=== PATIENT | male | born 1950 | race Caucasian/White ===

== ENCOUNTER 2017-04-14 15:12 | Outpatient (CLI) | payer BC ==
--- NOTE | 2017-04-14 20:10 | MRI ---
CERVICAL MRI WITHOUT CONTRAST: Date: 04-14-17 Comparison: None. History: Cervical radiculopathy, neck pain with bilateral shoulder pain for two years. Technique: Multiplanar, multisequence MR imaging of the cervical spine is provided without contrast. FINDINGS: The sagittal STIR imaging demonstrates no focal area of osseous marrow edema. There is mild degenerative change at the atlantoaxial interspace. There is no anterolisthesis or ret rolisthesis seen within the cervical spine. No focal area of prevertebral soft tissue abnormality no chucky. C2-3: No central canal or neural foraminal stenosis. C3-4: Mild left sided facet hypertrophy with no significant central canal or neural foraminal stenos is. Minimal disc bulge present. C4-5: Mild left facet hypertrophy. No significant central canal or neural foraminal stenosis. Minima l disc bulge present. C5-6: There is disc space narrowing and disc desiccation with mild disc bulge. There is associated u ncal vertebral osteophyte formation. There is partial effacement of the ventral thecal sac with mild disc bulge abutting the ventral aspect of the cord with a mild degree of central canal stenosis. Se condary to disc bulge and mild osteophyte formation, there is mild bilateral neural foraminal stenos is, left greater than right. C6-7: Mild facet hypertrophy bilaterally. No significant central canal or neural foraminal stenosis. C7-T1: No significant central canal or neural foraminal stenosis. No focal area of signal abnormality is identified within the cervical cord. IMPRESSION: Degenerative disc disease at C5-6 as detailed above. POS: [facility]
--- NOTE | 2017-04-15 08:42 | MRI ---
MRI OF THE LEFT SHOULDER: Date: 04-14-17 Provided Clinical History: Left shoulder pain. FINDINGS: The components of the rotor cuff appear intact. The long head biceps tendon appears intact and agustin lly located. The glenoid labrum and glenoid humeral articular cartilage are suboptimally evaluated w ithout joint distention. There is somewhat complex signal present in the region of the superior labr um which could reflect SLAP tear. Articular cartilage appears grossly preserved. The amount of fluid within the glenohumeral joint appears physiologic. There is slightly greater kaleb n physiologic subacromial subdeltoid bursal fluid present. Acromioclavicular joint osteoarthrosis is noted which produces mild mass effect upon the adjacent supraspinatus. No focal concerning regional marrow or muscular signal abnormality is apparent. IMPRESSION: 1. Acromioclavicular joint osteoarthrosis with mass effect upon the subjacent supraspinatus. Greater than physiologic subacromial subdeltoid bursal fluid. Please correlate with concern for subacromial impingement. 2. Possible SLAP tear. POS: [facility]
--- NOTE | 2017-04-15 09:12 | MRI ---
MRI OF THE RIGHT SHOULDER: Date: 04-15-17 Provided Clinical History: Right shoulder pain. FINDINGS: There is a small high grade partial thickness articular surface tear involving the distal supraspina tus tendon at the sub plate anteriorly. The components of the rotator cuff appear otherwise intact. The long head biceps tendon appears intact and is normally located. There is a 1.5 cm septated T2 hyperintense structure immediately inferior and slightly medial to the inferior aspect of the glenoid compatible with a paralabral cyst and implying an associated labral tear. The glenoid labrum and glenohumeral articular cartilage are suboptimally evaluated without yasmin nt distention but appear otherwise normal. Acromioclavicular joint osteoarthrosis is noted with mild mass effect upon this adjacent supraspinat us. The amounts of fluid within the glenohumeral joint and subacromial subdeltoid bursa are physiolo gic. No focal concerning regional marrow or muscular signal abnormality is apparent. IMPRESSION: 1. Small high grade partial thickness articular surface tear involving the distal supraspinatus tend on. 2. Paralabral cyst formation at the inferior aspect of the glenoid, implying an associated labral te ar. 3. Mild acromioclavicular joint osteoarthrosis. POS: OFF
== END 2017-04-14 15:13 | disposition home or self-care (01) ==
LOC: MRI 15:12
PROVIDERS: ATTEND Orthopaedic Surgery
DX: M25.511 Pain in right shoulder (principal); M25.512 Pain in left shoulder; M50.122 Cervical disc disorder at C5-C6 level with radiculopathy; M75.101 Unspecified rotator cuff tear or rupture of right shoulder, not specified as traumatic
CPT/HCPCS: 72141

== ENCOUNTER 2017-11-17 07:02 | Day surgery (SDC) | payer OTHER ==
[2017-11-14 10:15] VITALS: BMI 27.7
[~2017-11-17 07:02] MED LIST: Prevnar 13-Val Conj/PF 0.5 ML SYRINGE IM ONE
[2017-11-17 08:01] VITALS: BP 117/77; TEMP 98
[2017-11-17] MEDS ORDERED: Iopamidol-M 300 61% 15 ML VIAL ONE (09:56)
--- NOTE | 2017-11-17 10:27 | CT ---
CERVICAL MYELOGRAM AND POST MYELOGRAPHIC CT: DATE: 11/17/17. HISTORY: A 67-year-old male with a history of neck pain. Dose is 1.9 minutes of fluoroscopy and AK of 0.8 mGy. TECHNIQUE: Informed consent was obtained from the patient. The L1-2 interlaminar space was localized using fluo roscopy. The overlying skin was prepped and draped in the usual sterile manner. A 1% Lidocaine solu tion was used to anesthetize the overlying soft tissues. A 22-gauge spinal needle was placed into th e subarachnoid space. A total of 10 mL of Isovue-M 300 was injected into the subarachnoid space. Th is is followed by spot images and post myelographic CT images of the cervical spine. RADIOGRAPHIC FINDINGS: C1-2, C2-3, C3-4, C4-5: Unremarkable. C5-6: There is disk space height loss. There is a broad-based disk-osteophyte complex centrally com pressing the thecal sac resulting in mild but not significant degree of central stenosis. The neural foramen are patent. C6-7 and C7-T1: Unremarkable. IMPRESSION: Disk space height loss with disk desiccation at C5-6 compatible with changes of spondylosis. POS: [facility]
== END 2017-11-17 09:50 | disposition home or self-care (01) ==
LOC: RAD 07:02
PROVIDERS: ATTEND Neurological Surgery
DX: M50.10 Cervical disc disorder with radiculopathy, unspecified cervical region (principal); F17.210 Nicotine dependence, cigarettes, uncomplicated; Z88.0 Allergy status to penicillin; Z88.5 Allergy status to narcotic agent
CPT/HCPCS: 62302; 72126

== ENCOUNTER 2019-03-05 10:44 | Outpatient (CLI) | payer OTHER ==
--- NOTE | 2019-03-05 12:08 | RAD ---
CERVICAL SPINE 4 VIEWS: DATE: 03/05/2019. TIME: 12:00 a.m. CLINICAL INDICATION: Cervical radiculopathy. COMPARISON: CT cervical spine 11/17/2017 is referenced. FINDINGS: Fracture:No fracture. Arthropathy:Mild degenerative change of the cervical spine, with asymmetric disc space narrowing at C 5-6. Multilevel facet osteoarthritis. Flexion and extension views reveal no significant translational motion. No significant malalignment o n the neutral view. There is straightening of the normal cervical curvature. Incidental findings:Atherosclerosis. IMPRESSION: 1. Multilevel degenerative change of the cervical spine, mild in degree. 2. No significant malalignment or translational motion.. Transcribed Date/Time: 03/05/2019 12:12 PM
== END 2019-03-05 10:45 | disposition home or self-care (01) ==
LOC: BICRAD 10:44
PROVIDERS: ATTEND Neurological Surgery
DX: M47.22 Other spondylosis with radiculopathy, cervical region (principal)
CPT/HCPCS: 72050

== ENCOUNTER 2019-04-23 12:03 | Day surgery (SDC) | payer OTHER ==
[2019-04-22 13:20] VITALS: BMI 29.0
[~2019-04-23 12:03] MED LIST changes: +Lidocaine 1% PF 5 ML VIAL ONE; +Ondansetron PF 4 MG/2 ML Vial ONE; -Prevnar 13-Val Conj/PF 0.5 ML SYRINGE IM ONE
[2019-04-23] MEDS ORDERED: Midazolam HCl 2 mg/2 ml Vial ONE ×2 (14:07→14:31)
[2019-04-23] MEDS ORDERED: Fentanyl 100 MCG/2 ML VIAL ONE (14:31)
--- NOTE | 2019-04-23 15:35 | MRI ---
MRI CERVICAL SPINE WITHOUT CONTRAST: HISTORY: Disc displacement. Neck pain. Degenerative disc disease. Disc herniation.. COMPARISON: 04/14/2017. FINDINGS: Appropriate T1 marrow signal intensity of the cervical vertebrae. Cervical spine vertebral body heig ht is maintained. No fracture. Straightening of normal cervical lordosis may be due to patient position or muscle spasm. Visualized brain parenchyma, cervicomedullary junction, cervical cord and the upper thoracic cord hav e a normal size and signal intensity. C2-C3: No significant central canal stenosis or significant neural foraminal narrowing. Minimal centr al disc protrusion. C3-C4: Broad-based disc bulge with central disc protrusion. There is contact upon the ventral thecal sac. Subarachnoid space is nearly effaced. Mild central canal stenosis. Minimal right foraminal narrowing due to uncovertebral hypertrophy. Left neural foramen is patent. C4-C5: Broad-based disc bulge with a central disc protrusion. There is contact upon the thecal sac. M ild deformity the midline cord. Subarachnoid space is maintained. Mild central canal stenosis. Mild bilateral foraminal narrowing due to uncovertebral hypertrophy. C5-C6: Broad-based [id number] complex abuts the thecal sac. Subarachnoid space is effaced. There is mild deformity of the cervical cord. Moderate central canal stenosis. Moderate bilateral foraminal narrowing. When compared to the previous examination, the degree of central canal stenosis is unchanged. C6-C7: No significant central canal stenosis or significant neural foraminal narrowing.. Perineural s leeve cyst in the right neural foramen, unchanged. C7-T1: No significant central canal stenosis or significant neural foraminal narrowing. Stable right perineural sleeve cyst and left perineal sleeve cyst. IMPRESSION: No significant interval change. Stable degenerative changes of the cervical spine as detailed above. Transcribed Date/Time: 04/23/2019 3:51 PM
== END 2019-04-23 15:40 | disposition home or self-care (01) ==
LOC: SDC/OP 12:03
PROVIDERS: ATTEND Neurological Surgery
DX: M50.122 Cervical disc disorder at C5-C6 level with radiculopathy (principal); M48.02 Spinal stenosis, cervical region; Z87.891 Personal history of nicotine dependence; Z88.0 Allergy status to penicillin; Z88.5 Allergy status to narcotic agent
CPT/HCPCS: 72141; J2001; J2250; J2405; J3010

== ENCOUNTER 2019-05-11 10:04 | Outpatient (CLI) | payer OTHER ==
--- NOTE | 2019-05-11 10:32 | RAD ---
XR Chest Pa Lat STANDARD HISTORY: Former cigarette smoker COMPARISON: 01/26/2014 FINDINGS: The heart size is normal. The lungs are well expanded without focal areas of consolidation, pneumothorax or pleural effusions. IMPRESSION: No radiographic evidence of acute cardiopulmonary process.
== END 2019-05-11 10:05 | disposition home or self-care (01) ==
LOC: BICRAD 10:04
PROVIDERS: ATTEND Family Medicine
DX: Z87.891 Personal history of nicotine dependence (principal)
CPT/HCPCS: 36415; 71046; 80053; 80061; 84443; 85025; G0103

== ENCOUNTER 2019-06-14 06:17 | Outpatient (CLI) | payer OTHER ==
[2019-06-14 10:51] LABS: Hemoglobin 16.1 g/dL (14.0-18.0); Mean Corpuscular HGB CONC 33.5 g/dL (32.0-36.0); Mean Corpuscular Volume 95.6 fL (78.0-98.0); Platelet Count 238 thou/uL (130-400); RBC Distribution Width 11.9 % (11.5-14.5); Red Blood Cell (RBC) Count 5.03 mill/uL (4.70-6.10); White Blood Cell (WBC) Count 8.3 thou/uL (4.8-10.8)
[2019-06-14 11:03] LABS: INR-International Normal Ratio 0.9; PTT 25.1 SEC (22.9-36.1); Prothrombin Time 12.2 SEC (12.0-14.7)
== END 2019-06-14 06:18 | disposition home or self-care (01) ==
LOC: LABBT 06:17
PROVIDERS: ATTEND Neurological Surgery
DX: Z01.812 Encounter for preprocedural laboratory examination (principal); M50.122 Cervical disc disorder at C5-C6 level with radiculopathy
CPT/HCPCS: 85027; 85610; 85730

== ENCOUNTER 2019-06-17 10:14 | Day surgery (SDC) | payer OTHER ==
[2019-06-14 09:30] VITALS: BMI 28.8
[2019-06-17] MEDS ORDERED: Levofloxacin 500 mg/D5W 100 ml Premix Bag ONE (10:51)
[2019-06-17] MEDS ORDERED: Clindamycin/D5W 900 mg/50 ml Premix Bag ONE ×2 (10:51→17:20)
[2019-06-17] MEDS ORDERED: Thrombin 5000 UNITS/5 ML VIAL ONE (11:50)
[2019-06-17] MEDS ORDERED: Midazolam HCl 2 mg/2 ml Vial ONE (11:52)
[2019-06-17] MEDS ORDERED: Fentanyl 100 MCG/2 ML VIAL ONE ×2 (12:14→15:04)
--- NOTE | 2019-06-17 14:05 | HP ---
REASON FOR ADMISSION: "I'm here for my neck surgery." HISTORY OF PRESENT ILLNESS: Sunny Zaman is a very pleasant 69-year-old gentleman, referred to us by Dr. Harmon, who has been evaluated for neck and right arm pain. He [facility] and had a shoulder evaluation by orthopedic surgeon, but came to our office because of failure of those maneuvers to alleviate his discomfort. In our office, we discovered intervertebral disk herniation at C5-C6, narrowing the neural foramina around the C6 nerve roots. We have tried physical therapy, traction injections, medication and activity modification for at least a year and a half, but he is not improving and his quality of life is not what he wants it to be. Mr. Zaman is coming to the hospital today for surgery to treat this issue. PAST MEDICAL HISTORY: Panic disorder, chronic anxiety, nicotine use, history of folliculitis, benign prostatic hypertrophy, and insomnia. PAST SURGICAL HISTORY: Cholecystectomy in 2005, nasal and sinus surgery, colonoscopy in 2013, and bilateral herniorrhaphies in 2001. MEDICATIONS: Include; 1. Xanax. 2. Naproxen. 3. Cialis. 4. Alprazolam. 5. Prior use of Medrol Dosepak. ALLERGIES: TO CODEINE AND PENICILLIN. FAMILY HISTORY: The patient's father was . He suffered during his life with cancer, coronary artery disease, and stroke. His mother had myocardial infarction and had . He has a brother with coronary artery disease as well, who required stenting. SOCIAL HISTORY: The patient is a former smoker. He rarely uses alcoholic beverages and denies illicit drug use. REVIEW OF SYMPTOMS: Otherwise, negative. PHYSICAL EXAMINATION: Mr. Zaman came into our [facility] under his own power. He is awake and alert. His speech was fluent. He had no cranial neuropathy. On motor examination, there was good strength in the deltoids, biceps, triceps, finger extensors and interossei. There was mild weakness on the right with wrist extensors. There is no dermatomal sensory loss from C5 through T1. A Spurling's maneuver reproduced right shoulder pain, but not much radiating into the arm. IMAGING FINDINGS: MRI: There is cervical intervertebral disk disease at C5-C6 causing bilateral foraminal stenosis. Flexion-extension radiographs were stable. ASSESSMENT: Cervical disk disorder with radiculopathy at the C5-C6 level. PLAN: Mr. Zaman will be taken to the operating room for ACDF at C5-C6. We obtained informed consent in the clinic. He has been cleared for general anesthesia by primary care and we anticipated discharge today. Job ID: [id number]
[2019-06-17] MEDS ORDERED: PROPOFOL 200 MG/20 ML VIAL ONE (14:17)
[2019-06-17] MEDS ORDERED: Rocuronium Bromide 10 MG/ML (10ML VIAL) ONE (14:17)
[2019-06-17] MEDS ORDERED: Glycopyrrolate 0.2 MG/ML 5 ML SYRINGE ONE (14:17)
[2019-06-17] MEDS ORDERED: PHENYLEPHRINE-NS 100 MCG/ML 10 ML SYRINGE ONE (14:17)
[2019-06-17] MEDS ORDERED: Ondansetron PF 4 MG/2 ML Vial ONE (14:17)
[2019-06-17] MEDS ORDERED: Dexamethasone 20 MG/5 ML VIAL ONE (14:17)
[2019-06-17] MEDS ORDERED: Lidocaine 1% PF 5 ML VIAL ONE (14:17)
[2019-06-17] MEDS ORDERED: tiZANidine HCl 4 MG TAB PO PRN (15:04)
[2019-06-17] MEDS ORDERED: Morphine 2 MG/ML SYRINGE SLOW IVP PRN (15:04)
[2019-06-17] MEDS ORDERED: traMADol HCl 50 MG TAB PO PRN ×2 (15:04)
[2019-06-17] MEDS ORDERED: Promethazine 25 MG TAB PO PRN (15:04)
[2019-06-17] MEDS ORDERED: Promethazine HCl 25 MG/ML VIAL IM PRN (15:04)
[2019-06-17] MEDS ORDERED: Ondansetron PF 4 MG/2 ML Vial IVP PRN (15:04)
[2019-06-17] MEDS ORDERED: diphenhydrAMINE 50 MG/ML VIAL IVP PRN (15:04)
[2019-06-17] MEDS ORDERED: Morphine 4 MG/ML VIAL SLOW IVP PRN (15:04)
[2019-06-17] MEDS ORDERED: diphenhydrAMINE 25 MG CAP PO PRN (15:04)
[2019-06-17] MEDS ORDERED: Acetaminophen 650 MG Suppository PR PRN (15:04)
[2019-06-17] MEDS ORDERED: HYDROcodone/Acetaminophen 7.5/325 mg Tablet PO PRN ×2 (15:04)
[2019-06-17] MEDS ORDERED: Acetaminophen 325 MG TAB PO PRN (15:04)
[2019-06-17] MEDS ORDERED: Promethazine HCl 12.5 MG SUPP PR PRN (15:04)
[2019-06-17] MEDS ORDERED: Sodium Chloride 0.9% 1,000 ML IV SCH (15:15)
[2019-06-17] MEDS ORDERED: Tamsulosin HCl 0.4 MG CAP ONE (15:42)
[2019-06-17] MEDS ORDERED: tiZANidine HCl 4 MG TAB ONE (15:58)
[2019-06-17] MEDS ORDERED: Scopolamine 1.5 mg/72 hour Patch TD SCH (16:00)
--- NOTE | 2019-06-17 16:08 | OP ---
DATE OF PROCEDURE: 06/17/2019 GERIATRIC NURSING ASSISTANT: Santo Baker PA-C PREOPERATIVE INDICATION: Prevent neurological deterioration, treat pain. PREOPERATIVE DIAGNOSIS: Cervical intervertebral disk disease at C5-C6 with C6 radiculopathies, right greater than left. POSTOPERATIVE DIAGNOSIS: Cervical intervertebral disk disease at C5-C6 with C6 radiculopathies, right greater than left. PROCEDURES PERFORMED: Anterior cervical diskectomy, intervertebral arthrodesis, placement of intervertebral biomechanical device and anterior cervical plating C5-C6, local morselized autograft, morselized allograft, operating microscope. PREOPERATIVE MEDICATIONS: Clindamycin 900 mg IV, Levaquin 500 mg IV. DRAIN NUMBER: Zero. DRAIN TYPE: None. DESCRIPTION OF PROCEDURE: The patient was brought to the operating room. General endotracheal anesthesia was induced. The patient was positioned on the operating table with his head supported by a donut-shaped headrest. A lateral fluoro radiograph was used to plan our incision. The right side of the neck was sterilely prepped and draped. We opened with a 10 blade knife and we controlled bleeding with bipolar cautery. We dissected sharply to the platysma and we cut this muscle in line with our incision. We continued our dissection medial to the sternocleidomastoid lateral to the trachea and esophagus and we arrived to the prevertebral space. We placed a marker at C5-C6 and took a lateral fluoro radiograph to confirm the level upon, which we were operating. We then elevated the longus colli muscles off the anterior surface of C5 and C6 and placed a self-retaining retractor beneath them. Distraction pins were placed in both of the vertebral bodies and we distracted across the C5-C6 interspace with the [place] distractor. We incised the interspace with a 15 blade knife and removed disk contents using curettes and rongeurs. The operating microscope was brought into the field. Under microscopic magnification and using microsurgical techniques, we removed the remainder of the intervertebral disk. We accessed the ventral epidural space with a micro curette. We used Kerrison rongeurs to remove posterior osteophytes and posterior longitudinal ligament across the entire interspace from one neural foramen all the way to the other. With our decompression secured, we turned our attention to arthrodesis. We used curettes to prepare the endplates for grafting. We used a bone rasp to measure the height of the interspace to 8 mm. An 8-mm PEEK intervertebral graft was brought into the field. Osteophytes removed during our decompression were cleaned of soft tissue attachments, morcellized and added into demineralized bone matrix as our fusion substrate. The substrate was packed into the interbody device and that device advanced into the interspace under radiographic guidance to the appropriate depth. We then removed our distraction pins and placed a 14 mm plate over the anterior surface of the vertebral bodies. We drilled airline pilot/first officer holes through the plate into the vertebral bodies and affixed the plate using 14 mm screws. Fixed angle screws were used at C6 and variable angle screws at C5. We engaged the locking mechanism over each of the 4 screws. AP and lateral fluoro radiographs confirmed adequate positioning of our instrumentation. We irrigated with bacitracin irrigation. We closed the wound in anatomical layers and we applied a sterile dressing. This was a clean case, no contamination. Job ID: [id number]
[2019-06-17] MEDS ORDERED: HYDROcodone/Acetaminophen 5/325 mg Tablet ONE (16:44)
[2019-06-17] MEDS ORDERED: Clindamycin/D5W 900 MG in Premix Bag 1 BAG IVPB SCH (19:00)
[2019-06-18] MEDS ORDERED: Tamsulosin HCl 0.4 MG CAP PO SCH (06:00)
== END 2019-06-17 18:15 | disposition home or self-care (01) ==
LOC: SDC 10:14
PROVIDERS: ATTEND Neurological Surgery
DX: M50.122 Cervical disc disorder at C5-C6 level with radiculopathy (principal); M48.02 Spinal stenosis, cervical region; F41.9 Anxiety disorder, unspecified; N40.0 Benign prostatic hyperplasia without lower urinary tract symptoms; G47.00 Insomnia, unspecified; Z87.891 Personal history of nicotine dependence; Z79.899 Other long term (current) drug therapy; Z88.0 Allergy status to penicillin; Z88.5 Allergy status to narcotic agent
CPT/HCPCS: 76000; C1713; C1776; J1100; J1956; J2001; J2250; J2405; J2704; J3010; J3490

== ENCOUNTER 2019-07-28 15:31 | Outpatient (CLI) | payer OTHER ==
--- NOTE | 2019-07-28 16:17 | RAD ---
Exam: Cervical spine 3 views HISTORY: Follow-up, status post surgery 5 weeks ago FINDINGS: AP, open-mouth and lateral view of the cervical spine does demonstrate slightly prominent a ir-filled esophagus at the C5-C6 level. Lucency favors a air-filled esophagus, rather than prevertebral soft tissue swelling. No cervical spine fracture. Predental space is normal. There is straightening of normal cervical lordosis. There is an anterior fusion plate with transverte bral body screw at C5-C6. No perihardware lucency. There is an associated disc prosthesis On the AP projection, there is no malalignment. IMPRESSION: 1. Uncomplicated cervical fusion at C5-C6. 2. There appears be a prominent air-filled cervical esophagus. Correlate clinically. If there is haley ent is experiencing dysphagia, consider cervical esophagram CODE T
== END 2019-07-28 15:32 | disposition home or self-care (01) ==
LOC: TBSIIMAG 15:31
PROVIDERS: ATTEND Neurological Surgery
DX: M54.12 Radiculopathy, cervical region (principal); Z98.1 Arthrodesis status
CPT/HCPCS: 72040

== ENCOUNTER 2020-08-23 13:29 | Outpatient (CLI) | payer BC | END 2020-08-23 13:30 | disposition home or self-care (01) | LOC: BICCT 13:29 | PROVIDERS: ATTEND Family Medicine | DX: Z12.2 Encounter for screening for malignant neoplasm of respiratory organs (principal); F17.210 Nicotine dependence, cigarettes, uncomplicated; R91.1 Solitary pulmonary nodule | CPT/HCPCS: 71271 ==

== ENCOUNTER 2020-11-04 15:29 | Inpatient (IN) | payer BC, MEDICARE ==
[2020-11-04] MEDS ORDERED: Nitroglycerin 2% Ointment 1 INCH/1 GM Packet ONE (15:48)
[2020-11-04] MEDS ORDERED: Aspirin Chewable 81 MG TAB ONE (15:48)
[2020-11-04 15:51] LABS: #Basophils 0.1 thou/uL (0.0-0.2); #Eosinphils 0.2 thou/uL (0.0-0.7); #Lymphocytes 3.3 thou/uL (1.20-3.40); #Monocytes 0.7 thou/uL (0.11-0.59); #Neutrophils 6.4 thou/uL (1.40-6.50); %Basophils 0.9 % (0.0-1.0); %Eosinophils 1.7 % (0.0-10.0); %Lymphocytes 30.9 % (21.0-51.0); %Monocytes 6.2 % (0.0-10.0); %Neutrophils 60.3 % (42.0-75.0); Hemoglobin 16.8 g/dL (14.0-18.0); Mean Corpuscular HGB CONC 33.9 g/dL (32.0-36.0); Mean Corpuscular Hemoglobin 33.5 pg (27.0-31.0); Mean Corpuscular Volume 98.8 fL (78.0-98.0); Platelet Count 241 thou/uL (130-400); Red Blood Cell (RBC) Count 5.01 mill/uL (4.70-6.10); White Blood Cell (WBC) Count 10.5 thou/uL (4.8-10.8)
[2020-11-04 16:16] LABS: ALT (SGPT) 31 U/L (8-55); AST (SGOT) 26 U/L (5-34); Albumin 4.3 g/dL (3.4-4.8); Alkaline Phosphatase 66 U/L (40-110); Anion Gap 16 mmol/L (10-20); BUN (Urea Nitrogen) 23 mg/dL (8.4-25.7); Bilirubin, Total 0.4 mg/dL (0.2-1.2); Calc. Creatinine Clearance 0 mL/min (70-130); Calcium 9.8 mg/dL (7.8-10.44); Carbon Dioxide 24 mmol/L (23-31); Chloride 104 mmol/L (98-107); Globulin 3.5 g/dL (2.4-3.5); Glucose 84 mg/dL (80-115); Lipase 51 U/L (8-78); Potassium 4.7 mmol/L (3.5-5.1); Protein, Total 7.8 g/dL (5.8-8.1); Sodium 139 mmol/L (136-145)
[2020-11-04] MEDS ORDERED: Nitroglycerin 0.4 MG TAB 1 EACH ONE (17:35)
[2020-11-04] MEDS ORDERED: cloNIDine 0.1 MG TAB PO PRN ×2 (18:06→18:11)
[2020-11-04] MEDS ORDERED: ALPRAZolam 0.25 MG TAB PO PRN (18:06)
[2020-11-04] MEDS ORDERED: Ondansetron ODT 4 MG TAB PO PRN (18:07)
[2020-11-04] MEDS ORDERED: Acetaminophen 325 MG TAB PO PRN (18:07)
[2020-11-04] MEDS ORDERED: Calcium Carbonate 500 MG ChewTAB PO PRN (18:07)
[2020-11-04] MEDS ORDERED: Senokot S 8.6-50 MG TAB PO PRN (18:07)
[2020-11-04] MEDS ORDERED: Ondansetron PF 4 MG/2 ML Vial IVP PRN (18:07)
[2020-11-04] MEDS ORDERED: Nitroglycerin 0.4 MG TAB (25 Tab Bottle) SL PRN (18:09)
[2020-11-04] MEDS ORDERED: Amlodipine 5 MG TAB PO SCH (18:15)
[2020-11-04 19:32] VITALS: BMI 26.9
[2020-11-04 19:39] LABS: Troponin I 0.224 ng/mL (< 0.028)
[2020-11-04] MEDS ORDERED: Fentanyl 100 MCG/2 ML VIAL SLOW IVP PRN (20:21)
[2020-11-04 22:14] LABS: Troponin I 0.793 ng/mL (< 0.028)
[2020-11-04 23:30] LABS: SARS-CoV-2 PCR by NAA Not Detected (NotDetected)
[2020-11-04] MEDS ORDERED: Nitroglycerin 2% Ointment 1 INCH/1 GM Packet TOP SCH (23:59)
[2020-11-05] MEDS ORDERED: Enoxaparin Sodium 100 MG/ML SYRINGE SC SCH (00:30)
[2020-11-05 05:49] LABS: Troponin I 3.211 ng/mL (< 0.028)
[2020-11-05] MEDS ORDERED: Lorazepam 2 MG/ML VIAL SLOW IVP PRN (07:42)
[2020-11-05] MEDS: Aspirin 325 mg Enteric Coated Tablet PO SCH (08:02)
[2020-11-05] MEDS: Enoxaparin Sodium 100 MG/ML SYRINGE SC SCH ×2 (08:03→08:17)
[2020-11-05] MEDS ORDERED: Amlodipine 5 MG TAB PO SCH (09:00)
[2020-11-05] MEDS: Loratadine 10 MG TAB PO SCH (10:00)
[2020-11-05] MEDS: Fluticasone Propionate Nasal Spray 16 gm Bottle NASAL SCH (10:00)
[2020-11-05] MEDS ORDERED: Magnesium 2 GM/50 ML 2 GM in Premix Bag 1 BAG IVPB SCH (12:00)
[2020-11-05] MEDS ORDERED: Communication Order-Pharmacy FS SCH (14:00)
[2020-11-05] MEDS: Metoprolol Tartrate 25 MG TAB PO SCH (20:39)
[2020-11-06 05:13] LABS: #Basophils 0.1 thou/uL (0.0-0.2); #Eosinphils 0.2 thou/uL (0.0-0.7); #Lymphocytes 3.6 thou/uL (1.20-3.40); #Monocytes 0.8 thou/uL (0.11-0.59); #Neutrophils 4.1 thou/uL (1.40-6.50); %Basophils 1.4 % (0.0-1.0); %Eosinophils 2.1 % (0.0-10.0); %Monocytes 8.9 % (0.0-10.0); %Neutrophils 46.7 % (42.0-75.0); Hemoglobin 15.4 g/dL (14.0-18.0); Mean Corpuscular HGB CONC 32.6 g/dL (32.0-36.0); Mean Corpuscular Hemoglobin 32.2 pg (27.0-31.0); Mean Corpuscular Volume 98.7 fL (78.0-98.0); Mean Platelet Volume 7.9 fL (7.4-10.4); Platelet Count 206 thou/uL (130-400); RBC Distribution Width 11.9 % (11.5-14.5); White Blood Cell (WBC) Count 8.7 thou/uL (4.8-10.8)
[2020-11-06 05:31] LABS: Anion Gap 10 mmol/L (10-20); BUN (Urea Nitrogen) 14 mg/dL (8.4-25.7); Calc. Creatinine Clearance 90 mL/min (70-130); Calcium 9.3 mg/dL (7.8-10.44); Carbon Dioxide 29 mmol/L (23-31); Chloride 105 mmol/L (98-107); Glucose 95 mg/dL (80-115); Potassium 4.8 mmol/L (3.5-5.1); Sodium 139 mmol/L (136-145)
[2020-11-06 05:39] LABS: Critical Call Chem Troponin I RESULT DECREASING
[2020-11-06] MEDS: Loratadine 10 MG TAB PO SCH (05:55)
[2020-11-06] MEDS: Fluticasone Propionate Nasal Spray 16 gm Bottle NASAL SCH (05:55)
[2020-11-06] MEDS: Aspirin 325 mg Enteric Coated Tablet PO SCH (05:55)
[2020-11-06 05:58] LABS: CKMB 6.5 ng/mL (0-6.6)
[2020-11-06] MEDS ORDERED: Sodium Chloride 0.9% 1,000 ML IV SCH (06:00)
[2020-11-06] MEDS: Metoprolol Tartrate 25 MG TAB PO SCH (06:51)
[2020-11-06] MEDS ORDERED: Lidocaine 1% (PF) 30 ML VIAL ONE (07:48)
[2020-11-06] MEDS ORDERED: Midazolam HCl 2 mg/2 ml Vial ONE (08:31)
[2020-11-06] MEDS ORDERED: Fentanyl 100 MCG/2 ML VIAL ONE (08:31)
[2020-11-06] MEDS ORDERED: Iopamidol 370 76% 100 ML VIAL ONE (08:41)
[2020-11-06] MEDS ORDERED: Nitroglycerin 100MG/250ML BOT 250 ML ONE (08:55)
[2020-11-06] MEDS ORDERED: Nitroglycerin 0.4 MG TAB (25 Tab Bottle) SL PRN (09:44)
[2020-11-06] MEDS ORDERED: Sodium Chloride 0.9% 200 ML IV PRN (09:44)
[2020-11-06] MEDS ORDERED: Amlodipine 5 MG TAB PO SCH (14:00)
[2020-11-06] MEDS ORDERED: Clopidogrel Bisulfate 300 MG TAB PO SCH (14:00)
[2020-11-06 16:36] VITALS: BP 123/71; TEMP 98.2
[2020-11-06] MEDS ORDERED: Rosuvastatin 20 MG TAB PO SCH (21:00)
[2020-11-06] MEDS ORDERED: Tamsulosin HCl 0.4 MG CAP PO SCH (21:00)
[2020-11-07] MEDS ORDERED: Clopidogrel Bisulfate 75 MG TAB PO SCH (09:00)
[2020-11-07] MEDS ORDERED: Aspirin 81 mg Enteric Coated Tablet PO SCH (09:00)
== END 2020-11-06 17:05 | disposition home or self-care (01) | DRG 282 ==
LOC: ERS 15:29 → 2SW 17:33 → OBSVTOIN 11-05 07:40
PROVIDERS: ADMIT Internal Medicine; ATTEND Internal Medicine
PROC: 4A023N7 Measurement of Cardiac Sampling and Pressure, Left Heart, Percutaneous Approach (ICD-10-PCS; principal; 2020-11-06)
PROC: B2111ZZ Fluoroscopy of Multiple Coronary Arteries using Low Osmolar Contrast (ICD-10-PCS; 2020-11-06)
PROC: B2151ZZ Fluoroscopy of Left Heart using Low Osmolar Contrast (ICD-10-PCS; 2020-11-06)
DX: I21.4 Non-ST elevation (NSTEMI) myocardial infarction (principal); Z20.822 Contact with and (suspected) exposure to COVID-19; I20.1 Angina pectoris with documented spasm; F41.9 Anxiety disorder, unspecified; F17.210 Nicotine dependence, cigarettes, uncomplicated; G89.29 Other chronic pain; N40.0 Benign prostatic hyperplasia without lower urinary tract symptoms; I45.10 Unspecified right bundle-branch block; M50.30 Other cervical disc degeneration, unspecified cervical region; E83.42 Hypomagnesemia; N18.2 Chronic kidney disease, stage 2 (mild); D75.89 Other specified diseases of blood and blood-forming organs; G47.00 Insomnia, unspecified; I95.1 Orthostatic hypotension; E78.00 Pure hypercholesterolemia, unspecified; J44.9 Chronic obstructive pulmonary disease, unspecified; I13.10 Hypertensive heart and chronic kidney disease without heart failure, with stage 1 through stage 4 chronic kidney disease, or unspecified chronic kidney disease; Z88.0 Allergy status to penicillin; Z88.5 Allergy status to narcotic agent; Z79.899 Other long term (current) drug therapy; Z90.49 Acquired absence of other specified parts of digestive tract
CPT/HCPCS: 36415; 71045; 76942; 80048; 80053; 82553; 83690; 83735; 84443; 84484; 85025; 93005; 93306; 93458; 94760; 96372; 96374; 97139; 99152; 99153; G0378; J1650; J2001; J2250; J3010; J3475; Q9967; U0003; U0005

== ENCOUNTER 2021-10-30 15:01 | Outpatient (CLI) | payer BC | END 2021-10-30 15:02 | disposition home or self-care (01) | LOC: BICCT 15:01 | PROVIDERS: ATTEND Family Medicine | DX: M48.061 Spinal stenosis, lumbar region without neurogenic claudication (principal); M99.03 Segmental and somatic dysfunction of lumbar region; M47.816 Spondylosis without myelopathy or radiculopathy, lumbar region | CPT/HCPCS: 72131 ==

== ENCOUNTER 2022-02-06 11:48 | Outpatient (CLI) | payer MEDICARE | END 2022-02-06 11:49 | disposition home or self-care (01) | LOC: LABBT 11:48 | PROVIDERS: ATTEND Neurological Surgery | DX: M48.062 Spinal stenosis, lumbar region with neurogenic claudication (principal); Z20.822 Contact with and (suspected) exposure to COVID-19 | CPT/HCPCS: 87811 ==

== ENCOUNTER 2022-03-08 10:32 | Day surgery (SDC) | payer MEDICARE ==
[2022-02-08 10:15] VITALS: BMI 32.5
[2022-03-08] MEDS ORDERED: fentaNYL Citrate/PF 100 MCG/2 ML SYRINGE ONE (11:59)
[2022-03-08] MEDS ORDERED: PROPOFOL 200 MG/20 ML VIAL ONE (12:30)
[2022-03-08] MEDS ORDERED: Lidocaine 1% PF 5 ML VIAL ONE (12:30)
== END 2022-03-08 14:03 | disposition home or self-care (01) ==
LOC: MRI 10:32
PROVIDERS: ATTEND Neurological Surgery
DX: M48.062 Spinal stenosis, lumbar region with neurogenic claudication (principal); I70.0 Atherosclerosis of aorta; M43.16 Spondylolisthesis, lumbar region; M47.815 Spondylosis without myelopathy or radiculopathy, thoracolumbar region; M47.816 Spondylosis without myelopathy or radiculopathy, lumbar region; M47.817 Spondylosis without myelopathy or radiculopathy, lumbosacral region; Z79.02 Long term (current) use of antithrombotics/antiplatelets; Z79.1 Long term (current) use of non-steroidal anti-inflammatories (NSAID); Z79.82 Long term (current) use of aspirin; Z79.899 Other long term (current) drug therapy; Z88.0 Allergy status to penicillin; Z88.5 Allergy status to narcotic agent
CPT/HCPCS: 72120; 72148; J2704

== ENCOUNTER 2022-05-02 10:05 | Outpatient (CLI) | payer MEDICARE, OTHER ==
[2022-05-02 11:25] LABS: Mean Corpuscular HGB CONC 33.2 g/dL (32.0-36.0); Mean Corpuscular Volume 93.4 fl (81.2-95.1); Mean Platelet Volume 10.1 fl (7.4-10.4); Platelet Count 367 10x3/uL (150-450); RBC Distribution Width 12.5 % (11.5-14.5); Red Blood Cell (RBC) Count 4.84 10x6/uL (4.32-5.72); White Blood Cell (WBC) Count 18.5 10x3/uL (3.5-10.5)
[2022-05-02 11:34] LABS: INR-International Normal Ratio 0.9; Prothrombin Time 10.2 sec (9.5-12.1)
== END 2022-05-02 10:06 | disposition home or self-care (01) ==
LOC: LABBT 10:05
PROVIDERS: ATTEND Neurological Surgery
DX: Z01.812 Encounter for preprocedural laboratory examination (principal); M43.16 Spondylolisthesis, lumbar region
CPT/HCPCS: 85027; 85610; 85730

== ENCOUNTER 2022-06-27 10:31 | Outpatient (CLI) | payer MEDICARE, OTHER | END 2022-06-27 10:32 | disposition home or self-care (01) | LOC: TBSIIMAG 10:31 | PROVIDERS: ATTEND Neurological Surgery | DX: M48.062 Spinal stenosis, lumbar region with neurogenic claudication (principal); Z98.890 Other specified postprocedural states | CPT/HCPCS: 72100 ==

== ENCOUNTER 2023-03-12 17:00 | Outpatient (CLI) | payer MEDICARE | END 2023-03-12 17:01 | disposition home or self-care (01) | LOC: SLEEPLAB 17:00 | PROVIDERS: ATTEND Student in an Organized Health Care Education/Training Program | DX: G47.33 Obstructive sleep apnea (adult) (pediatric) (principal); G47.10 Hypersomnia, unspecified; G47.9 Sleep disorder, unspecified; G47.00 Insomnia, unspecified; G47.61 Periodic limb movement disorder; I25.119 Atherosclerotic heart disease of native coronary artery with unspecified angina pectoris; I10 Essential (primary) hypertension; I21.9 Acute myocardial infarction, unspecified; I49.9 Cardiac arrhythmia, unspecified; F41.9 Anxiety disorder, unspecified; E66.9 Obesity, unspecified; R51.9 Headache, unspecified; R09.89 Other specified symptoms and signs involving the circulatory and respiratory systems; R53.83 Other fatigue; R06.83 Snoring; Z68.32 Body mass index [BMI] 32.0-32.9, adult | CPT/HCPCS: 95810 ==

== ENCOUNTER 2023-03-19 08:46 | Outpatient (CLI) | payer MEDICARE | END 2023-03-19 08:47 | disposition home or self-care (01) | LOC: BICRAD 08:46 | PROVIDERS: ATTEND Neurological Surgery | DX: M47.22 Other spondylosis with radiculopathy, cervical region (principal); Z98.1 Arthrodesis status | CPT/HCPCS: 72050 ==

== ENCOUNTER 2023-06-05 08:42 | Outpatient (CLI) | payer MEDICARE | END 2023-06-05 08:43 | disposition home or self-care (01) | LOC: BICULT 08:42 | PROVIDERS: ATTEND Student in an Organized Health Care Education/Training Program | DX: I71.40 Abdominal aortic aneurysm, without rupture, unspecified (principal) | CPT/HCPCS: 76706 ==

== ENCOUNTER 2024-01-23 13:49 | Outpatient (CLI) | payer MEDICARE | END 2024-01-23 13:50 | disposition home or self-care (01) | LOC: BICCT 13:49 | PROVIDERS: ATTEND Student in an Organized Health Care Education/Training Program | DX: Z12.2 Encounter for screening for malignant neoplasm of respiratory organs (principal); Z87.891 Personal history of nicotine dependence | CPT/HCPCS: 71271 ==

== ENCOUNTER 2024-03-30 19:50 | Inpatient (IN) | payer MEDICARE ==
[2024-03-30 20:26] LABS: #Basophils 0.05 10x3/uL (0.0-0.2); %Basophils 0.5 % (0.0-1.0); %Eosinophils 1.2 % (0.0-10.0); %Lymphocytes 37.7 % (21.0-51.0); %Monocytes 6.3 % (0.0-10.0); Hematocrit 42.6 % (42.0-52.0); Hemoglobin 13.7 g/dL (14.0-18.0); Mean Corpuscular HGB CONC 32.2 g/dL (32.0-36.0); Mean Corpuscular Hemoglobin 31.1 pg (27.0-31.0); Mean Corpuscular Volume 96.8 fL (78.0-98.0); Mean Platelet Volume 10.3 fL (7.4-10.4); Platelet Count 269 10x3/uL (130-400); RBC Distribution Width 13.2 % (11.5-14.5)
[2024-03-30 20:42] LABS: ALT (SGPT) 41 U/L (8-55); AST (SGOT) 29 U/L (5-34); Albumin 3.9 g/dL (3.4-4.8); Alkaline Phosphatase 76 U/L (40-110); Anion Gap 14 mmol/L (10-20); BUN (Urea Nitrogen) 24 mg/dL (8.4-25.7); Bilirubin, Total 0.4 mg/dL (0.2-1.2); Calc. Creatinine Clearance 0 mL/min (70-130); Calcium 9.5 mg/dL (7.8-10.44); Carbon Dioxide 24 mmol/L (23-31); Chloride 105 mmol/L (98-107); Estimated GFR 78; Globulin 2.8 g/dL (2.4-3.5); Glucose 110 mg/dL (83-110); Potassium 4.1 mmol/L (3.5-5.1); Protein, Total 6.7 g/dL (5.8-8.1); Sodium 139 mmol/L (136-145)
[2024-03-30 20:47] LABS: Troponin I Less than 0.010 ng/mL (< 0.028)
[2024-03-30] MEDS ORDERED: Aspirin Chewable 81 MG TAB ONE (21:08)
[2024-03-30] MEDS ORDERED: Ondansetron ODT 4 MG TAB SL PRN (21:45)
[2024-03-30] MEDS ORDERED: Ondansetron PF 4 MG/2 ML Vial IVP PRN ×2 (21:45→21:59)
[2024-03-30] MEDS ORDERED: Ondansetron ODT 4 MG TAB PO PRN (21:59)
[2024-03-30] MEDS ORDERED: Acetaminophen 650 MG Suppository PR PRN (21:59)
[2024-03-30] MEDS ORDERED: Nitroglycerin 2% Ointment 1 INCH/1 GM Packet TOP SCH (22:00)
[2024-03-30] MEDS ORDERED: Mag-Al 1200 mg/1200 mg/30 ML UDCUP ONE (22:09)
[2024-03-30] MEDS ORDERED: Nitroglycerin 0.4 MG TAB 1 EACH ONE (22:09)
[2024-03-30] MEDS ORDERED: Lidocaine Viscous Sol 2% 15 ml UD Cup ONE (22:10)
[2024-03-30] MEDS ORDERED: ALPRAZolam 0.25 MG TAB PO PRN (22:51)
[2024-03-30 23:24] VITALS: BMI 31.2
[2024-03-31] MEDS: Acetaminophen 325 MG TAB PO SCH (00:04)
[2024-03-31 00:53] LABS: Troponin I Less than 0.010 ng/mL (< 0.028)
[2024-03-31] MEDS: Morphine 2 MG/ML VIAL SLOW IVP SCH (02:52)
[2024-03-31 02:54] LABS: Anion Gap 13 mmol/L (10-20); BUN (Urea Nitrogen) 23 mg/dL (8.4-25.7); Calc. Creatinine Clearance 114 mL/min (70-130); Calcium 8.9 mg/dL (7.8-10.44); Carbon Dioxide 20 mmol/L (23-31); Chloride 106 mmol/L (98-107); Estimated GFR 91; Glucose 105 mg/dL (83-110); Potassium 3.9 mmol/L (3.5-5.1); Sodium 135 mmol/L (136-145)
[2024-03-31 02:59] LABS: Troponin I Less than 0.010 ng/mL (< 0.028)
[2024-03-31] MEDS: Rosuvastatin 20 MG TAB PO SCH (10:17)
[2024-03-31] MEDS: Famotidine 20 MG TAB PO SCH (10:18)
[2024-03-31] MEDS: Amlodipine 10 MG TAB PO SCH (10:19)
[2024-03-31] MEDS: Famotidine/PF 20 mg/2ml Vial SLOW IVP SCH (10:43)
[2024-03-31] MEDS: Lisinopril 10 MG TAB PO SCH (11:28)
[2024-03-31] MEDS: Acetaminophen 325 MG TAB PO PRN (11:31)
[2024-03-31] MEDS: Amlodipine 5 MG TAB PO SCH (11:38)
[2024-03-31] MEDS: Lisinopril 20 MG TAB PO SCH (11:38)
[2024-03-31] MEDS: Clopidogrel Bisulfate 300 MG TAB PO SCH (14:49)
[2024-03-31] MEDS: Benzocaine/Menthol 1 LOZ LOZ PO PRN (21:51)
[2024-04-01] MEDS: Lisinopril 10 MG TAB PO SCH (08:21)
[2024-04-01] MEDS: Clopidogrel Bisulfate 75 MG TAB PO SCH (08:22)
[2024-04-01] MEDS: Amlodipine 10 MG TAB PO SCH (08:22)
[2024-04-01 12:09] VITALS: BP 125/71; TEMP 98.4
== END 2024-04-01 13:29 | disposition home or self-care (01) | DRG 303 ==
LOC: ERS 19:50 → OBS 21:26 → OBSVTOIN 04-01 10:32
PROVIDERS: ADMIT Student in an Organized Health Care Education/Training Program; ATTEND Student in an Organized Health Care Education/Training Program
DX: I25.110 Atherosclerotic heart disease of native coronary artery with unstable angina pectoris (principal); I10 Essential (primary) hypertension; I25.10 Atherosclerotic heart disease of native coronary artery without angina pectoris; E78.5 Hyperlipidemia, unspecified; K21.9 Gastro-esophageal reflux disease without esophagitis; I45.10 Unspecified right bundle-branch block; Z90.49 Acquired absence of other specified parts of digestive tract; Z88.5 Allergy status to narcotic agent; Z88.0 Allergy status to penicillin; Z88.8 Allergy status to other drugs, medicaments and biological substances
CPT/HCPCS: 36415; 71045; 80048; 80053; 80061; 83880; 84484; 85025; 93005; 96374; G0378; J2272

== ENCOUNTER 2025-05-12 13:27 | Outpatient (CLI) | payer OTHER | END 2025-05-12 13:28 | disposition home or self-care (01) | LOC: DTY/OP 13:27 | PROVIDERS: ATTEND Family Medicine | DX: K76.0 Fatty (change of) liver, not elsewhere classified (principal); Z68.30 Body mass index [BMI] 30.0-30.9, adult | CPT/HCPCS: 97802 ==